=== PATIENT | female | born 1995 | race Two or more races ===

== ENCOUNTER 2020-08-22 15:40 | Emergency (ER) | payer BC ==
[~2020-08-22] VITALS: Ht 154.9 cm; Wt 61.4 kg
[2020-08-22] MEDS ORDERED: IV NORMAL SALINE 1000ML BAG 1,000 ML IV ONE (16:45)
[2020-08-22] MEDS ORDERED: ONDANSETRON PF 4 MG/2 ML VIAL. IVP ONE (16:45)
[2020-08-22 16:52] LABS: BILIRUBIN,URINE SMALL (NEG); CLARITY,URINE CLEAR; COLOR,URINE AMBER; NITRITE,URINE NEGATIVE (NEG); PROTEIN,URINE 30 mg/dL (NEG-TRACE)
[2020-08-22 16:59] LABS: BACTERIA,URINE MANY /HPF (0-FEW)
[2020-08-22 17:02] LABS: RBC,URINE OCC /HPF (0-2)
[2020-08-22 17:04] LABS: U PREG PATIENT POSITIVE (NEG)
[2020-08-22 17:07] LABS: BARBITURATES NEG (NEG); BENZODIAZEPINES NEG (NEG); CANNABINOIDS NEG (NEG); COCAINE NEG (NEG); METHADONE NEG (NEG); OPIATES NEG (NEG); PHENCYCLIDINE NEG (NEG)
[2020-08-22 17:16] LABS: AMPHETAMINE/METHAMPHETAMINE NEG (NEG)
[2020-08-22 17:28] LABS: BASO % 0 % (0-3); EOS % 0 % (0-3); HEMOGLOBIN 15.1 g/dL (12.0-15.5); LYMPH # 1.7 x10^3/uL (1.0-4.8); LYMPH % 15 % (24-48); MEAN CORPUSCULAR HEMOGLOBIN 29 pg (25-35); MEAN CORPUSCULAR HGB CONC 34 g/dL (31-37); MEAN CORPUSCULAR VOLUME 87 fL (79-100); MONO # 0.7 x10^3/uL (0.0-1.1); MONO % 6 % (0-9); NEUT # 8.9 x10^3/uL (1.8-7.7); NEUT % 79 % (31-73); PLATELET COUNT 257 x10^3/uL (140-400); RED BLOOD COUNT 5.16 x10^6/uL (3.50-5.40); RED CELL DISTRIBUTION WIDTH 12.7 % (11.5-14.5); WHITE BLOOD COUNT 11.3 x10^3/uL (4.0-11.0)
[2020-08-22 17:43] LABS: CALCIUM 8.9 mg/dL (8.5-10.1); CREATININE 0.7 mg/dL (0.6-1.0); POTASSIUM 3.7 mmol/L (3.5-5.1)
[2020-08-22 17:49] LABS: ALBUMIN 3.8 g/dL (3.4-5.0); ALBUMIN/GLOBULIN RATIO 0.9 (1.0-1.7); TOTAL BILIRUBIN 0.5 mg/dL (0.2-1.0)
--- NOTE | 2020-08-22 17:56 | RAD ---
INDICATION: Reason: pain / Spl. Instructions: / History: COMPARISON: None. TECHNIQUE: Grayscale and color ultrasound images uterus and adnexa. Transabdominal and transvaginal images obtained. Transvaginal images were needed to better visualize structures that were limited on transabdominal imaging. FINDINGS: Uterus: 90 x 70 x 60 mm. Intrauterine gestational sac is identified with a pole with a crown-rump length of 5 mm and hea rt beat of 118. Right Ovary: 31 x 16 x 15 mm. Left Ovary: 39 x 22 x 20 mm. Vascular flow identified to bilateral ovaries. Too early in to adequately assess the placenta. Small free fluid in the pelvis. IMPRESSION: * Intrauterine is identified with positive heartbeat and estimated gestational age of 6 w eeks and 2 days. Recommend routine anomaly screening at 18-22 weeks. Electronically signed by: Kaushal Duarte MD (08/22/2020 5:53 PM) [id number]
[2020-08-22] MEDS ORDERED: ONDANSETRON PF 4 MG/2 ML VIAL. ONE (17:58)
[2020-08-22 18:30] VITALS: BP 106/78
[2020-08-22] MEDS ORDERED: ONDA4TAB12 PO (18:42)
[2020-08-22] MEDS ORDERED: CEPH500T PO (18:42)
--- NOTE | 2020-08-22 18:43 | PHYS DOC ---
Past Medical History Past Medical History: No Pertinent History Past Surgical History: No Surgical History Smoking Status: Never Smoker Alcohol Use: None General Adult EDM: Chief Complaint: VOMITING IN HPI: HPI: Patient is a 24 year old female 1 para 0 currently 5 or 6 weeks per her statement presenting to the ED today complaining of nausea and vomiting that began on August 17, 2020. Patient states she did a home test on August 20, 2020 and it was positive. Patient denies any abdominal pain. Denies any vaginal bleeding. She states she has not seen an [facility] yet Review of Systems: Review of Systems: Constitutional: Denies fever or chills. [] Eyes: Denies change in visual acuity. [] HENT: Denies nasal congestion or sore throat. [] Respiratory: Denies cough or shortness of breath. [] Cardiovascular: Denies chest pain or edema. [] GI: Reports nausea and vomiting in . Denies abdominal pain, bloody st ools or diarrhea. [] : Denies dysuria. [] Musculoskeletal: Denies back pain or joint pain. [] Integument: Denies rash. [] Neurologic: Denies headache, focal weakness or sensory changes. [] Psychiatric: Denies depression or anxiety. [] Heart Score: C/O Chest Pain: N/A Risk Factors: Risk Factors: DM, Current or recent (<one month) smoker, HTN, HLP, family history of CAD, obesity. Risk Scores: Score 0 - 3: 2.5% MACE over next 6 weeks - Discharge Home Score 4 - 6: 20.3% MACE over next 6 weeks - Admit for Clinical Observation Score 7 - 10: 72.7% MACE over next 6 weeks - Early Invasive Strategies Current Medications: Current Medications Medications (Trade) Dose Ordered Sig/Nic Start Time Stop Time Status Last Admin Dose Admin Ondansetron HCl (Zofran) 4 mg 1X ONCE 08/22/20 16:45 08/22/20 16:46 UNV 08/22/20 18:06 4 MG Sodium Chloride 1,000 ml @ 1,000 mls/hr 1X ONCE 08/22/20 16:45 08/22/20 17:44 UNV 08/22/20 18:07 1,000 MLS/HR Physical Exam: PE: Constitutional: Well developed, well nourished, no acute distress, non-toxic appearance. [] HENT: Normocephalic, atraumatic, bilateral external ears normal, oropharynx moist, no oral exudates, nose normal. [] Eyes: PERRLA, EOMI, conjunctiva normal, no discharge. [] Neck: Normal range of motion, no tenderness, supple, no stridor. [] Cardiovascular:Heart rate regular rhythm, no murmur [] Lungs & Thorax: Bilateral breath sounds clear to auscultation [] Abdomen: Bowel sounds normal, soft, no tenderness, no masses, no pulsatile masses. [] Skin: Warm, dry, no erythema, no rash. [] Back: No tenderness, no CVA tenderness. [] Extremities: No tenderness, no cyanosis, no clubbing, ROM intact, no edema. [] Neurologic: Alert and oriented X 3, normal motor function, normal sensory function, no focal deficits noted. [] Psychologic: Affect normal, judgement normal, mood normal. [] Current Patient Data: Labs: Laboratory Tests Test 08/22/20 16:37 08/22/20 17:20 Urine Collection Type Unknown Urine Color Amy Urine Clarity Clear Urine pH 6.0 (<5.0-8.0) Urine Specific [place] >=1.030 (1.000-1.030) Urine Protein 30 mg/dL (NEG-TRACE) Urine Glucose (UA) Negative mg/dL (NEG) Urine Ketones (Stick) >=80 mg/dL (NEG) Urine Blood Moderate (NEG) Urine Nitrite Negative (NEG) Urine Bilirubin Small (NEG) Urine Urobilinogen Dipstick 1.0 mg/dL (0.2 mg/dL) Urine Leukocyte Esterase Small (NEG) Urine RBC Occ /HPF (0-2) Urine WBC 1-4 /HPF (0-4) Urine Squamous Epithelial Cells Many /LPF Urine Bacteria Many /HPF (0-FEW) Urine Mucus Marked /LPF Urine Test Positive (NEG) Urine Opiates Screen Neg (NEG) Urine Methadone Screen Neg (NEG) Urine Barbiturates Neg (NEG) Urine Phencyclidine Screen Neg (NEG) Urine Amphetamine/Methamphetamine Neg (NEG) Urine Benzodiazepines Screen Neg (NEG) Urine Cocaine Screen Neg (NEG) Urine Cannabinoids Screen Neg (NEG) Urine Ethyl Alcohol Neg (NEG) White Blood Count 11.3 x10^3/uL (4.0-11.0) H Red Blood Count 5.16 x10^6/uL (3.50-5.40) Hemoglobin 15.1 g/dL (12.0-15.5) Hematocrit 45.0 % (36.0-47.0) Mean Corpuscular Volume 87 fL (79-100) Mean Corpuscular Hemoglobin 29 pg (25-35) Mean Corpuscular Hemoglobin Concent 34 g/dL (31-37) Red Cell Distribution Width 12.7 % (11.5-14.5) Platelet Count 257 x10^3/uL (140-400) Neutrophils (%) (Auto) 79 % (31-73) H Lymphocytes (%) (Auto) 15 % (24-48) L Monocytes (%) (Auto) 6 % (0-9) Eosinophils (%) (Auto) 0 % (0-3) Basophils (%) (Auto) 0 % (0-3) Neutrophils # (Auto) 8.9 x10^3/uL (1.8-7.7) H Lymphocytes # (Auto) 1.7 x10^3/uL (1.0-4.8) Monocytes # (Auto) 0.7 x10^3/uL (0.0-1.1) Eosinophils # (Auto) 0.0 x10^3/uL (0.0-0.7) Basophils # (Auto) 0.0 x10^3/uL (0.0-0.2) Maternal Serum HCG Beta Subunit 085234 mIU/mL (0-5) H Sodium Level 132 mmol/L (136-145) L Potassium Level 3.7 mmol/L (3.5-5.1) Chloride Level 99 mmol/L (98-107) Carbon Dioxide Level 23 mmol/L (21-32) Anion Gap 10 (6-14) Blood Urea Nitrogen 6 mg/dL (7-20) L Creatinine 0.7 mg/dL (0.6-1.0) Estimated GFR (Cockcroft-Gault) 102.0 BUN/Creatinine Ratio 9 (6-20) Glucose Level 77 mg/dL (70-99) Calcium Level 8.9 mg/dL (8.5-10.1) Total Bilirubin 0.5 mg/dL (0.2-1.0) Aspartate Amino Transferase (AST) 26 U/L (15-37) Alanine Aminotransferase (ALT) 36 U/L (14-59) Alkaline Phosphatase 63 U/L (46-116) Total Protein 8.0 g/dL (6.4-8.2) Albumin 3.8 g/dL (3.4-5.0) Albumin/Globulin Ratio 0.9 (1.0-1.7) L Ethyl Alcohol Level < 10 mg/dL (0-10) Laboratory Tests 08/22/20 17:20 Laboratory Tests 08/22/20 17:20 Vital Signs: Vital Signs Date Time Temp Pulse Resp B/P (MAP) Pulse Ox O2 Delivery O2 Flow Rate FiO2 08/22/20 16:39 99.0 93 16 119/81 (94) 97 Room Air 99.0 EKG: EKG: [] Radiology/Procedures: Radiology/Procedures: []PROCEDURE: OB <14 WKS W/TV INDICATION: Reason: pain / Spl. Instructions: / History: COMPARISON: None. TECHNIQUE: Grayscale and color ultrasound images uterus and adnexa. Transabdominal and transvaginal images obtained. Transvaginal images were needed to better visualize structures that were limited on transabdominal imaging. FINDINGS: Uterus: 90 x 70 x 60 mm. Intrauterine gestational sac is identified with a pole with a crown-rump length of 5 mm and heart beat of 118. Right Ovary: 31 x 16 x 15 mm. Left Ovary: 39 x 22 x 20 mm. Vascular flow identified to bilateral ovaries. Too early in to adequately assess the placenta. Small free fluid in the pelvis. IMPRESSION: * Intrauterine is identified with positive heartbeat and estimated gestational age of 6 weeks and 2 days. Recommend routine anomaly screening at 18-22 weeks. Electronically signed by: Swapna Duarte MD (08/22/2020 5:53 PM) [id number] DICTATED and SIGNED BY: SWAPNA DUARTE MD DATE: 08/22/20 [id number] 0 Course & Med Decision Making: Course & Med Decision Making Pertinent Labs and Imaging studies reviewed. (See chart for details) This is a 24-year-old female patient presenting to the ED today with nausea and vomiting in . See HPI. Positive urine test, beta hCG 115,0 86, CBC with a WBC of 11.8, CMP with no acute findings, urine noted for small amount of leukocytes though it appears contaminated considering she is we will go ahead and treat this patient with cephalexin, will also discharge her with Zofran. OB ultrasound noted for an IUP 6 weeks 2 days with a heart rate of 118. Discharge to home. Provided OB for follow-up. Blade Disclaimer: Blade Disclaimer: This electronic medical record was generated, in whole or in part, using a voice recognition dictation system. Departure Departure Impression: Primary Impression: Nausea and vomiting during Additional Impression: Urinary tract infection during Qualified Codes: O23.41 - Unspecified infection of urinary tract in preg freddy, first trimester Disposition: 01 DC HOME SELF CARE/HOMELESS Condition: STABLE Referrals: NO PCP (PCP) CHACHA HER MD follow up in 1 week Patient Instructions: Diet - Hyperemesis Gravidarum, Hyperemesis Gravidarum, - Urinary Tract Infection Additional Instructions: Your test in the emergency room is positive, you are 6 weeks 2 days . Your beta-hCG is 115,086. Your urine has some infection. We will put you on antibiotics, take them as prescribed. Take Zofran as needed for nausea or vomiting. Ensure you complete the antibiotics. Follow-up with the provided [facility] Ondansetron (ONDANSETRON ODT) 4 Mg Tab.rapdis 1 TAB PO PRN Q6-8HRS, #16 TAB Prov: RICK PHILLIPS APRN 08/22/20 Cephalexin (CEPHALEXIN) 500 Mg Tablet 1 TAB PO BID, #14 TAB Prov: RICK PHILLIPS APRN 08/22/20 RICK PHILLIPS APRN Aug 22, 2020 18:42
== END 2020-08-22 18:58 | disposition home or self-care (01) ==
LOC: ER 15:40
DX: O23.41 Unspecified infection of urinary tract in pregnancy, first trimester (principal); Z3A.01 Less than 8 weeks gestation of pregnancy
CPT/HCPCS: 36415; 76801; 76817; 80053; 80307; 81001; 81025; 84702; 85025; 87086; 96361; 96374; 99284; G0480; J2405; J7030